=== PATIENT | female | born 1965 | race Caucasian/White ===

== ENCOUNTER 2024-09-07 13:57 | Outpatient (CLI) | payer OTHER, SELFPAY | END 2024-09-07 13:58 | disposition home or self-care (01) | PROVIDERS: PCP Family Medicine; Visit Provider Family Medicine | DX: Z00.00 Encounter for general adult medical examination without abnormal findings (principal); R03.0 Elevated blood-pressure reading, without diagnosis of hypertension; R53.83 Other fatigue; R79.89 Other specified abnormal findings of blood chemistry; Z13.6 Encounter for screening for cardiovascular disorders | CPT/HCPCS: 80053; 80061; 84443 ==

== ENCOUNTER 2024-09-15 13:45 | Outpatient (CLI) | payer OTHER, SELFPAY ==
--- NOTE | 2024-09-15 13:45 | CRLHL7_ITS ---
For Patients: As a result of the Century Cures Act, medical imaging exams and procedure reports are released immediately into your electronic medical record. You may view this report before your referring provider. If you have questions, please contact your health care provider. INDICATION: SWELLING, MASS, LUMP IN NECK COMPARISON: none TECHNIQUE: Greenfield scale and color Doppler images were acquired of the thyroid gland. FINDINGS: Thyroid gland is diffusely heterogeneous. Isthmus measures 1.9 millimeter. The right lobe measures 5.5 x 1.5 x 1.7 cm and the left lobe measures 5.0 x 1.4 x 1.6 cm in size. There are no suspicious masses or nodules. The color Doppler images demonstrate normal vascularity. There is no evidence of cervical lymphadenopathy or parathyroid mass. IMPRESSION: Diffusely heterogeneous thyroid without thyroid nodule. Dictated by Jethro Decker MD @ 09/15/2024 4:11:15 PM (Electronically Signed)
--- OUTSIDE RECORDS SUMMARY | 2024-09-16 00:32 | XMS_ITS | Clinical Summary ---
Author Organization [facility] Address Formerly [facility] [place] [address] Care Team Providers Care Slag Motor Operator Name Role Phone Jocelyne Aggarwal MD Primary Care Provider Allergies No known active allergies Medications MULTIVITAMIN TAB take 1 tablet by oral route once daily with food 0 08/26/2006 Active calcium carbonate, Each tab delivers 500 mg Calcium, (OS-BRENNAN 500) 500 mg (1,250 mg) tablet Take two tablets daily 0 0 03/07/2009 Active medroxyPROGESTE Donovan (PROVERA) 10 mg tablet Take 1 tablet twice daily for 7 days 15 tablet 0 07/26/2012 Active fish oil-omega-3 fatty acids (FISH OIL) 300-1,000 mg Take 1 capsule by mouth once daily. 0 08/21/2016 Active medroxyPROGESTE Donovan (PROVERA) 10 mg tabletIndicatio ns:Spotting Take 1 tablet by mouth once daily. 10 tablet 08/21/2016 Active Active Problems Problem Noted Date Diagnosed Date Unspecified acute reaction to stress 02/04/2012 Routine gynecological examination 02/04/2012 Other general symptoms(780.99) 08/26/2006 Immunizations Immunization Administration Dates Next Due Influenza, IIV3 (Age 6-35 mos) 12/15/2008 Influenza, IIV3 (Age >=3 years) 02/04/2012 MMR 11/25/1989 Td (Age >=7 Years) 09/05/2003,11/25/1989 Tdap 02/04/2012 02/03/2022 Family History Medical History Relation Name Comments Hypertension Father Stroke Father Cancer-breast Maternal Aunt Heart Disease Maternal Grandfather Diabetes Maternal Grandmother Diabetes Mother type II Heart Disease Mother Hyperlipidemia Mother Heart Disease Paternal Grandfather Stroke Paternal Grandmother Thyroid Disease Sister 2 hypothyroidi sm Cancer-ovarian No Family History Relation Name Status Comments Brother Alive Daughter Alive Father Maternal Aunt Maternal Grandfather Maternal Grandmother Mother Alive Paternal Grandfather Paternal Grandmother Sister 1 Alive Sister 2 Son Alive Social History Tobacco Use Types Packs/Day Years Used Date Smoking Tobacco: Never Smokeless Tobacco: Never Tobacco Cessation:Counseling Given: Yes Alcohol Use Standard Drinks/Week Comments Yes 0 (1 standard drink = 0.6 oz pur e alcohol) 2 glasses wine per week PHQ-2 Answer Date Recorded PHQ-2 Score 0 05/23/2018 Comments No Sex and Gender Information Value Date Recorded Sex Assigned at Not on file 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 Gender Identity Not on file Sexual Orientation Not on file 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 Not on file Not on file Not on file Obstetrics History Para Term AB IAB SAB Ectopic Multiple Livin g Live Births 4 2 2 2 2 Date Outcome GA Total Labor Labor/2nd/3rd Weight Sex Type Anes PTL Erin A1 A5 Name Clin Term Term 06/01 40w 0d 3.68 kg (8 lb 1.8 oz) M Vag Living [facility] 01/05 40w 0d 3.82 kg (8 lb 6.8 oz) F Vag Living [facility] Last Filed Vital Signs Vital Sign Reading Time Taken Comments Blood Pressure 99/70 09/07/2017 9:11 AM CDT Pulse 58 09/07/2017 9:11 AM CDT Temperature 36.6 C (97.9 F) 09/07/2017 9:11 AM CDT Respiratory Rate 18 07/26/2012 1:43 PM CDT Oxygen Saturation 99% 09/07/2017 9:11 AM CDT Inhaled Oxygen Concentration - - Weight 76.3 kg (168 lb 3.2 oz) 08/10/2017 9:25 A M CDT Height 176 cm (5' 9.29) 08/10/2017 9:25 AM CDT Body Mass Index 24.63 08/10/2017 9:25 AM CDT Plan of Treatment Health Maintenance Due Date Last Done Comments HIV for age 15-65 1980 Hepatitis C screening for ag e 18-79 07/06/1983 Hepatitis B series for 19+ ( 1 of 3 - 19+ 3-dose series) 1984 Colonoscopy through age 75 2010 Pneumococcal series for age 50+ (1 of 1 - PCV) 07/06/2015 Zoster (shingles) series for age 50+ (1 of 2) 07/06/2015 Mammogram for age 45-75 08/21/2017 08/22/19 17, 08/21/2016, 02/04/2012, Additional history exists BMI (ht and wt on same day) for age 18+ 08/10/2018 08/10/2017, 08/21/2016 Depression screening for age 12+ 08/10/2018 08/11/19 18, 08/21/2016 Pap test for age 21-65 08/22/2019 7, 02/04/2012, 02/04/2012, Additional history exists Lipids for age 45-75 08/21/2021 08/21/2016, 02/04/2012, 02/04/2012, Additional history exists Tetanus booster 02/03/2022 02/04/2012, 01/20, 09/05/2003, Additional history exists COVID-19 vaccine series ( season) 2023 Influenza Vaccine (Season Ended) 2024 02/04/20 12, 12/15/2008 Tdap Completed 02/04/2012 Procedures Procedure Name Priority Date/Time Associated Diagnosis Comments GRADER GREEN MEAT THIN PREP PAP SCREEN IMAGED Routine 08/21/2016 2:47 PM CDT Pap smear for cervical cancer screening Spotting XR MAMMO BILAT SCREENING Routine 08/21/2016 12:28 PM CDT Visit for screening mammogram LIPID PANEL Routine 08/21/2016 12:08 PM CDT Well woman exam with routine gynecological exam from Last 3 Months or Most Recently Relevant to Health Maintenance Results * GRADER GREEN MEAT THIN PREP PAP SCREEN IMAGED (08/21/2016 2:47 PM CDT) Case Report Gynecologic Cytology Report Case: [id number] Authorizing Provider: Jocelyne Aggarwal MD Collected: 08/21/2016 1447 Ordering Location: [facility] Received: 08/21/2016 1447 [facility] First Screen: Armando Go Specimen: GRADER GREEN MEAT ThinPrep Vial Screening, Cervical 09/02/2016 9:34 AM CDT [facility] INTERPRETATION /RESULT NEGATIVE FOR INTRAEPITHELIAL LESION OR MALIGNANCY (NIL) (none) 09/02/2016 9:34 AM CDT [facility] at 0934 CDT ORGANISM(S) Shift in emre suggestive of bacterial vaginosis 09/02/2016 9:34 AM CDT [facility] SPECIMEN ADEQUACY Satisfactory for evaluation No endocervical component seen 09/02/2016 9:34 AM CDT [facility] HPV REQUEST HPV if ASCUS 09/02/2016 9:34 AM CDT [facility] Date of LMP 07/09/2016 09/02/2016 9:34 AM CDT [facility] Last Pap Date 01/201209/02/2016 9:34 AM CDT [facility] Last Pap Result NIL 09/02/2016 9:34 AM CDT [facility] Abnormal Pap or Alanson Bx in last 5 years No 09/02/2016 9:34 AM CDT [facility] Menstrual Status Regular Periods 09/02/2016 9:34 AM CDT [facility] Alanson Bx Done Today No 09/02/2016 9:34 AM CDT [facility] Additional Information None given 09/02/2016 9:34 AM CDT [facility] Automated Review Failed 09/02/2016 9:34 AM CDT [facility] Comment:Processing failed, m anual screening required. ThinPrep Imaging System, [employer] Note The pap test is a screening technique, not a diagnostic procedure. It is used primarily to screen for squamous cancers and precursor lesions. Published studies have shown that it is subject to both false negative and false positive results. The pap test should not be used as the sole means to diagnose or exclude pre-malignant and malignant lesions. Interpreted at [facility] (Central Lab, [facility], [facility], [facility], [facility], [facility], [facility]) 09/02/2016 9:34 AM CDT [facility] Other (Cervical) 08/21/2016 2:47 PM CDT 08/21/2016 2:47 PM CDT Comment:Menstrual blood pres ent us Jocelyne Aggarwal MD PATHOLOGY/CYTOLOGY Rosa Maria flynn Result [facility] [address] [place] [address], [place] * XR MAMMO BILAT SCREENING (08/21/2016 12:28 PM CDT) Anatomical Region Laterality Modality BREASTS, Breast Left, Breast Right Bilateral Mammography Impressions 08/21/2016 12:45 PM CDT There is no radiographic evidence for malignancy. Recommend annual mammograms. A lay language report of this examination will be provided to the patient. MAMMOGRAM ASSESSMENT: ACR 1 Negative Narrative 08/21/2016 12:45 PM CDT XR MAMMO BILAT SCREENING [[id number]] CLINICAL HISTORY: This is an asymptomatic 51 y.o. patient. INDICATION FOR EXAM: Mammogram Screening. TECHNIQUE: CC & MLO views were obtained. This digital study was evaluated with the assistance of Computer-Aided Detection. COMPARISON FILM: Yes 02/04/12 03/07/09 FINDINGS: Mammographically, the breast tissue is extremely dense. This may lower the sensitivity of mammography. There are no dominant masses, suspicious micro calcifications or areas of architectural distortion. us Jocelyne Aggarwal MD MAMMO Final R esult * LIPID PANEL (08/21/2016 12:08 PM CDT) CHOLESTEROL,TOTAL 192 100 - 199 mg/dL 08/21/2016 4:48 PM CDT [facility] TRIGLYCERIDES 34 <150 mg/dL 08/21/2016 4:48 PM CDT [facility] HDL CHOLESTEROL 108 >40 mg/dL 7 4:48 PM CDT [facility] NON-HDL CHOLESTEROL 84 <145 mg/dl 08/21/2016 4:48 PM CDT [facility] CHOL/HDL RATIO 1.78 <4.50 08/21/2016 4:48 PM CDT [facility] LDL CHOLESTEROL 77 <=130 mg/dL 08/21/2016 4:48 PM CDT [facility] PATIENT STATUS FASTING 08/21/2016 4:48 PM CDT [facility] Blood BLOOD SPECIMEN / Unknown Venipuncture / Unknown 08/21/2016 12:08 PM CDT 08/21/2016 12:08 PM CDT Jocelyne Aggarwal MD CHEMISTRY Final R esult [facility] [employer] [facility] [address] [place] [id number] from Last 3 Months or Most Recently Relevant to Health Maintenance Care Teams Slag Motor Operator Relationship Specialty Start Date End Date Jocelyne Aggarwal MD [address] [place] [id number] PCP - General 07/05/06
== END 2024-09-15 13:46 | disposition home or self-care (01) ==
LOC: US 13:46
PROVIDERS: PCP Family Medicine; Visit Provider Family Medicine
DX: R22.1 Localized swelling, mass and lump, neck (principal); E04.1 Nontoxic single thyroid nodule
CPT/HCPCS: 76536; 87624; 88142

== ENCOUNTER 2024-10-16 11:55 | Outpatient (CLI) | payer OTHER, SELFPAY ==
--- NOTE | 2024-10-16 13:26 | P.ANES_ITS ---
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
--- NOTE | 2024-10-16 13:26 | W.ANESCHARGE ---
Anesthesia Charges Start Date/Time Anesthesia Start Date: 10/16/24 Anesthesia Start Time: 12:48 Stop Date/Time Anesthesia Stop Date: 10/16/24 Anesthesia Stop Time: 13:27 Coding CPT Codes CPT Codes: ANES LWR INTST NDSC NOS - 45879 ([id number]) P1 - NORMAL HEALTHY PATIENT, QZ - CHIEF SECURITY OFFICER SVC W/O PROGRAM TECHNICIAN BY
== END 2024-10-16 11:56 | disposition home or self-care (01) ==
LOC: OP CLINIC 11:56
PROVIDERS: PCP Family Medicine; Visit Provider Surgery
DX: Z12.11 Encounter for screening for malignant neoplasm of colon (principal)
CPT/HCPCS: 00811; 00812; 45378; J2704